=== PATIENT | male | born 1995 | race Caucasian/White ===

== ENCOUNTER 2017-06-20 23:59 | Emergency (ER) | payer OTHER ==
--- NOTE | 2017-06-21 02:23 | ED ---
Laceration/Wound HPI - HPI Summary HPI Summary: Patient is an otherwise healthy 22-year-old male who presents to the ED with laceration to the right thumb from a fence approximately 2 hours prior to arrival. He states there was a moderate amount of blood loss and the laceration was deep. Tetanus is up-to-date from 2 weeks ago. Bleeding is controlled on arrival. He is otherwise healthy, takes no medications including blood thinners. The wound is not contaminated. Full range of motion with the thumb and no foreign bodies are appreciated. - History of Current Complaint Stated Complaint: HAND LAC Time Seen by Provider: 06/21/17 01:26 Hx Obtained From: Patient Mechanism of Injury: Sharp/Blunt Trauma Onset/Duration: Sudden Onset Aggravating: Movement Alleviating: Compression Timing: Constant Onset Severity: Mild Current Severity: Mild Pain Intensity: 0 Pain Scale Used: 0-10 Numeric Associated Signs & Symptoms: Negative Related Hx: Dominant Hand (Right) - Allergy/Home Medications Allergies/Adverse Reactions: Allergies Allergy/AdvReac Type Severity Reaction Status Date / Time No Known Allergies Allergy Verified 06/21/17 00:05 PMH/Surg Hx/FS Hx/Imm Hx Previously Healthy: Yes - Immunization History Hx Pertussis Vaccination: No Immunizations Up to Date: Unable to Obtain/Confirm Infectious Disease History: No Infectious Disease History: Denies: Traveled Outside the [place] in Last 30 Days - Social History Occupation: Employed Full-time Lives: With Family Alcohol Use: Daily Hx Substance Use: No Substance Use Type: Reports: None Hx Tobacco Use: No Smoking Status (MU): Never Smoked Tobacco Review of Systems Constitutional: Negative Negative: Fever, Chills, Fatigue Eyes: Negative Cardiovascular: Negative Genitourinary: Negative Positive: no symptoms reported, see HPI Musculoskeletal: Negative Neurological: Negative All Other Systems Reviewed And Are Negative: Yes Physical Exam Triage Information Reviewed: Yes Vital Signs On Initial Exam: Initial Vitals Temp Pulse Resp BP Pulse Ox 97.8 F 96 16 138/84 95 06/21/17 00:02 06/21/17 00:02 06/21/17 00:02 06/21/17 00:02 06/21/17 00:02 Vital Signs Reviewed: Yes Appearance: Positive: Well-Appearing, Well-Nourished Skin: Positive: Warm, Skin Color Reflects Adequate Perfusion Head/Face: Positive: Normal Head/Face Inspection Eyes: Positive: EOMI, SEMAJ, Conjunctiva Clear Neck: Positive: Supple, No Lymphadenopathy Respiratory/Lung Sounds: Positive: Clear to Auscultation, Breath Sounds Present Cardiovascular: Positive: Pulses are Symmetrical in both Upper and Lower Extremities Musculoskeletal: Positive: Strength/ROM Intact Neurological: Positive: Speech Normal Psychiatric: Positive: Normal, Affect/Mood Appropriate AVPU Assessment: Alert Procedures - Laceration/Wound Repair 1 Location: upper extremity Description: Linear Anesthesia: Local, 1.0% Betadine Prep?: No Laceration/Wound Explored: clean Suture Type: Prolene Layer Closure?: No Sterile Dressing Applied?: No Diagnostics - Vital Signs Vital Signs Temp Pulse Resp BP Pulse Ox 06/21/17 00:02 97.8 F 96 16 138/84 95 - Laboratory Lab Statement: Any lab studies that have been ordered have been reviewed, and results considered in the medical decision making process. Laceration Repair Course/Dx - Course Course Of Treatment: During the course of treatment the patient is evaluated for laceration to the right thumb. The laceration is approximately 3.5 cm in length 1 cm in width and approximately 0.3 cm in depth. Endorses 2 out of 10 pain. The wound was cleansed with chlorhexidine and normal saline. No foreign bodies were seen, wound did not appear to be contaminated. 1 mL lido without epi used as anesthetic. 4-0 Prolene sutures placed. 6 sutures placed. EtOH on board. Patient tolerated well. Suture removal in 7 days. - Differential Dx Differental Diagnoses: Laceration - Clinical Impression Provider Diagnoses: Laceration Discharge - Discharge Plan Condition: Stable Disposition: HOME Patient Education Materials: Laceration (ED) Referrals: [facility] [Primary Care Provider] - Additional Instructions: Suture removal in 7 days Keep the area clean Antibiotic ointment with a gauze wrap 1-2 days Keep the area wrapped if you are in a dirty environment Otherwise, keep the wound open to air
[2017-06-21 02:47] VITALS: BP 130/69
== END 2017-06-21 02:46 | disposition home or self-care (01) ==
LOC: ED 23:59
DX: S61.011A Laceration without foreign body of right thumb without damage to nail, initial encounter (principal); W26.9XXA Contact with unspecified sharp object(s), initial encounter; Y92.9 Unspecified place or not applicable
CPT/HCPCS: 12001; 99282